=== PATIENT | male | born 1990 | race Two or more races ===

== ENCOUNTER 2023-08-20 10:55 | Emergency (ER) | payer SELFPAY ==
[2023-08-20 11:02] VITALS: BP 111/66; BP 118/66; PULSE 105; PULSE 86; RESP 18; TEMP 36.8; O2SAT 96; O2SAT 97; BMI 21.9
--- NOTE | 2023-08-20 11:08 | ED_ITS ---
HPI - Wound/Laceration General Chief Complaint: Wound/Laceration Stated Complaint: R HAND LAC,FROM WIRE/METAL, IN [employer] CUSTODY PER Time Seen by Provider: 08/20/23 11:02 Source: patient, EMS, RN notes reviewed and police Mode of arrival: EMS Limitations: no limitations History of Present Illness HPI narrative: Patient is a 33-year-old right-hand dominant male presenting to the emergency department in police custody with complaint of laceration to right hand. Police report that patient was attempting to evade police when he cut his hand on a fence. Patient states his Tdap is up-to-date within the last 2-3 years. Denies any decreased range of motion. Onset (ago): hour(s) Extremity Location: right: hand Place: outdoors Patient tetanus UTD: Yes Context: accidental Associated symptoms: pain Treatments prior to arrival: bandage Related Data Previous Rx's ?Medication ?Instructions ?Recorded amoxicillin 875 mg-potassium 1 tab PO BID #14 tabs 08/20/23 clavulanate 125 mg tablet Allergies Allergy/AdvReac Type Severity Reaction Status Date / Time No Known Allergies Allergy Verified 08/20/23 11:06 Review of Systems 2 Review of Systems: Yes all other systems are reviewed and are negative Constitutional: Constitutional: Reports as per HPI [facility] Social History Social History Advance Directives: No Do you have a plan to hurt others: No Plan Physical Exam 2 Vital Signs: Vital Signs: Last Vital Signs Temp 98.3 F 08/20/23 11:02 Pulse 86 08/20/23 11:02 Resp 18 08/20/23 11:02 BP 111/66 08/20/23 11:02 Pulse Ox 96 08/20/23 11:02 O2 Del Method Room Air 08/20/23 11:02 BMI result Body Mass Index 21.9 Vital signs have been reviewed and appear to be correct. Blood pressure normal. Heart rate normal. Respiratory rate normal. Temperature normal. Oxygen saturation normal. Const: General: cooperative, healthy appearing and no acute distress O rientation/consciousness: oriented to person, oriented to place, oriented to time and patient oriented x3 Limitations: no limitations HEENT: Head: Yes normocephalic and Yes atraumatic Ears: external ears normal General nose exam: Normal external nose present Face and sinus: Yes face symmetric Mouth: oropharynx normal and moist mucous membranes Throat: Yes uvula midline Eyes: Pupils: Equal, round and reactive pupils present Neck: Neck: Yes normal visual inspection and Yes supple Resp: Effort & Inspection: normal respiratory effort and able to speak in complete sentences Auscultation: clear to auscultation bilaterally Cardio: Rate: regular rate Rhythm: regular rhythm Heart sounds: S1 normal heart sound present and S2 normal heart sound present Skin: General skin exam: elasticity normal and turgor normal Neuro: General: oriented to person, oriented to place, oriented to time, patient oriented x3, moves all extremities, no focal motor deficits and CN's II- XI intact bilaterally Cranial nerves: Yes Equal, round and reactive pupils present Cognition (Neuro): normal cognition Extrem: General: Yes full ROM, Yes no pedal edema and Yes no calf tenderness Right upper extremity: Extremity exam: right hand Details: normal capillary refill, neuromotor exam normal, neurosensory exam normal, tendon exam normal, normal ROM of fingers and laceration palm ulnar aspect Details: irregular Hand/finger images: 1. 3cm laceration with visible subcutaneous tissue, no active bleeding Psych: Mental Status: mental status grossly normal Affect: normal affect Thought process: Normal thought process present Medical Decision Making Medical Decision Making MDM Narrative: Patient is a 33-year-old right-hand dominant male presenting to the emergency department in police custody with complaint of laceration to right hand. On exam patient is awake, A+Ox3, VS WNL, afebrile, normal neurological exam without focal deficits, physical exam findings as above. Given reported symptoms and physical exam findings, initial differential includes laceration, possible tendon injury. No tendon injury noted on physical exam. Laceration repaired as per procedure note. Tdap up-to-date. Will cover with Augmentin as wound occurred on fence/barbed wire. Instructed patient on wound care and daily checks of laceration to assess for signs of infection and advised to return if these occur. Instructed patient of sutures removed in 10-14 days. Return precautions discussed. Patient verbalized understanding of and agreement with plan. Differential Diagnosis Differential Diagnoses: The differential diagnosis associated with the presentation includes As per MDM. External Record Review External record reviewed: Inpatient record, Office record and Outpatient record Prescription Management I considered prescription management with: Antibiotic Procedures Laceration Laceration 1: Site: hand Side (If applicable): right Size (cm): 3 Description: irregular Depth: simple, single layer Local Anesthetic: lidocaine 1% Amount of anesthesia used (mL): 6 Pre-repair: wound explored, irrigated extensively and deep structures intact Skin layer closed with: other (prolene) Size (cm): 5-0 Number of sutures: 6 Technique: simple, interrupted Discharge Plan Discharge Clinical Impression: Laceration of hand Patient Disposition: Home, Self-Care Instructions: Care For Your Stitches (DC), Laceration (DC), Stitches Removal (ED) Additional Instructions: You have been evaluated in the emergency department today for a laceration to your hand. Your laceration was repaired in the emergency department with 6 sutures. Please keep the area surrounding the laceration clean and dry and keep dressing in place for the next 24 hours. After that please change the dressing and assess the wound daily. You should have the sutures removed in 10-14 days. You are being treated with a course of antibiotics to prevent infection, please complete the full course as prescribed. If you develop fever, redness, swelling at the site of your laceration, or thick yellow drainage please come back to the ER for a wound check. Prescriptions: New amoxicillin-pot clavulanate 875-125 mg tablet 1 tab PO BID Qty: 14 0RF Print Language: Slovenian
[2023-08-20] MEDS: Lidocaine HCl 1 % MPF 5 ML VIAL 10 ML INFILTRATI (12:50)
[2023-08-20] MEDS: Bacitracin Oint 0.9 GM PACKET 1 APPL TOPICAL (12:50)
[2023-08-20] MEDS: Amoxicillin/Potassium Clav 875 MG TABLET PO (12:53)
[2023-08-20 12:57] VITALS: BP 111/66; PULSE 86; RESP 18; TEMP 36.8; O2SAT 96
== END 2023-08-20 12:58 | disposition home or self-care (01) ==
PROVIDERS: Emergency Provider Emergency Medicine
DX: S61.411A Laceration without foreign body of right hand, initial encounter (principal); W26.8XXA Contact with other sharp object(s), not elsewhere classified, initial encounter; Y93.9 Activity, unspecified; Y92.9 Unspecified place or not applicable; Y99.9 Unspecified external cause status
CPT/HCPCS: 12002; 99282; 99284